=== PATIENT | female | born 1950 | race African-American/Black ===

== ENCOUNTER → 2019-03-01 | Day surgery (SDC) | payer MEDICARE, MEDICAID ==
--- NOTE | 2019-03-01 10:15 | MMO ---
RIGHT BREAST STEREOTACTIC BIOPSY: FINDINGS: Successful stereotactic biopsy of the left breast calcifications. Surgical specimen demonstrates the calcifications. Post biopsy mammogram demonstrates appropriate clip position. TECHNIQUE: Consent obtained to perform a stereotactic biopsy of the left breast. The left breast was prepped an d draped in a sterile fashion. Lidocaine 1% buffered with sodium bicarbonate was used for local anes thesia. Under mammographic guidance, the calcifications were identified. Needle position was confir med with respect to the calcifications, in a pre and post fire position. A total of six 10-gauge cor e biopsy samples were obtained. Radiograph of the specimen was performed. Calcifications were prese nt. A post biopsy clip was placed and is outside the needle. A post biopsy mammogram was performed, whic h demonstrated appropriate clip position. IMPRESSION: Successful left breast stereotactic biopsy. POS: [id number]
== END ==
LOC: MAMMO 06:58
PROC: 0HBU3ZX Excision of Left Breast, Percutaneous Approach, Diagnostic (ICD-10-PCS; principal; 2019-03-01)
DX: D24.2 Benign neoplasm of left breast (principal); N60.12 Diffuse cystic mastopathy of left breast; R92.0 Mammographic microcalcification found on diagnostic imaging of breast; Z88.1 Allergy status to other antibiotic agents
CPT/HCPCS: 19081; 76098; 88305